=== PATIENT | female | born 1995 | race Caucasian/White ===

== ENCOUNTER 2019-01-08 15:11 | Emergency (ER) | payer OTHER ==
[2019-01-08 15:26] VITALS: BP 145/89
--- NOTE | 2019-01-08 15:46 | ER Document Report ---
ED General - General Chief Complaint: Vag Bleeding, +preg <12wks Stated Complaint: VAGINAL BLEEDING Time Seen by Provider: 01/08/19 15:38 Primary Care Provider: OLLIE ORO [Primary Care Provider] - Follow up as needed TRAVEL OUTSIDE OF THE [place] IN LAST 30 DAYS: No - HPI Notes: Patient is a 23-year-old female approximately 6 weeks who presents to the emergency department complaining of vaginal bleeding and right lower pelvic pain that is described as sharp that began over the last 12 hours. Patient states that she is still eating and drinking without difficulty. She is urinating normally and having normal bowel movements. She has not had any other vaginal odor or discharge. She has no concern of STD or STI. Denies drug allergies. No surgical history to her abdomen. Pain does not radiate. Denies any headache, fever, neck pain, URI, sore throat, chest pain, palpitations, syncope, cough, shortness of breath, wheeze, dyspnea, nausea/vomiting/diarrhea, urinary retention, dysuria, hematuria, back pain, or rash. - Related Data Allergies/Adverse Reactions: No Known Allergies Allergy (Unverified 01/08/19 15:12) Past Medical History - Social History Smoking Status: Never Smoker Frequency of alcohol use: None Drug Abuse: None Family History: Reviewed & Not Pertinent Patient has suicidal ideation: No Patient has homicidal ideation: No Renal/ Medical History: Denies: Hx Peritoneal Dialysis Review of Systems - Review of Systems -: Yes All other systems reviewed and negative Physical Exam - Vital signs Vitals: Temp Pulse Resp BP Pulse Ox 98.7 F 95 16 145/89 H 100 01/08/19 15:24 01/08/19 15:24 01/08/19 15:24 01/08/19 15:24 01/08/19 15:24 - Notes Notes: PHYSICAL EXAMINATION: GENERAL: Well-appearing, well-nourished and in no acute distress. LUNGS: Breath sounds clear to auscultation bilaterally and equal. No wheezes rales or rhonchi. HEART: Regular rate and rhythm without murmurs, rubs, gallops. ABDOMEN: Soft, nontender, nondistended abdomen. No guarding, no rebound. No masses appreciated. Normal bowel sounds present. No CVA tenderness bilaterally. No tenderness at [place]. Corona negative. : deferred Musculoskeletal: FROM to passive/active. Strength 5+/5. Extremities: No cyanosis, clubbing, or edema b/l. Peripheral pulses 2+. Capillary refill less than 3 seconds. NEUROLOGICAL: Normal speech, normal gait. PSYCH: Normal mood, normal affect. SKIN: Warm, Dry, normal turgor, no rashes or lesions noted. Course - Re-evaluation Re-evalutation: 01/08/19 Patient is an afebrile, well-hydrated, 23-year-old female who presents to the ED with bleeding in early w/o IUP or EUP noted. Vitals are acceptable without any significant tachycardia, tachypnea, or hypoxia. PE is otherwise unremarkable. HCG 979. TVUS unremarkable aside from 'lesion' on rt. UA unremarkable. Rhogam not indicated. Patient is nontoxic-appearing is tolerating p.o. without any difficulties. No other labs or imaging warranted at this time based on H&P. Low suspicion/risk for acute appendicitis, bowel obstruction, acute cholecystitis, acute cholangitis, perforated diverticulitis, incarcerated hernia, pancreatitis, perforated ulcer, peritonitis, sepsis, pelvic inflammatory disease, ectopic , tubo-ovarian abscess, ovarian torsion, or other systemic emergent condition at this time. Patient is aware that her condition can change from initial presentation and she needs to monitor symptoms closely and seek medical attention if any acute changes. Recheck HCG in 2-3 days, may need repeat US next week as well. ?Miscarriage vs early but ectopic cannot be ruled out. Conservative measures otherwise for symptoms. Recheck with your PCM/OBGYN in 3-5 days. Return to the ED with any worsening/concerning symptoms otherwise as reviewed in discharge. Patient is in agreement. - Vital Signs Vital signs: Temp Pulse Resp BP Pulse Ox 98.7 F 95 16 145/89 H 100 01/08/19 15:24 01/08/19 15:24 01/08/19 15:24 01/08/19 15:24 01/08/19 15:24 - Laboratory Laboratory results interpreted by me: 01/08/19 01/08/19 15:52 15:52 Beta HCG, Quant 979.81 H Urine Blood MODERATE H Discharge - Discharge Clinical Impression: Bleeding in early , Pelvic pain Condition: Stable Disposition: HOME, SELF-CARE Additional Instructions: Your beta hCG hormone test was at 979 and your ultrasound was unremarkable for any intrauterine or extrauterine at this time. It did note a complex lesion in the right ovary that is 1.5 cm. You will need a recheck of your hCG hormone test in 2-3 days and most likely an ultrasound in the next week. We will need to call DIRECTOR OF INTELLIGENCE to schedule an appointment for further evaluation and follow-up. Maintain fluid intake Proper hygienic technique Keep the skin clean Tylenol as needed F/u with your PCM/OBGYN in 3-5 days for a recheck Return to the ED with any development of MEREDITH/fever, trouble with vision, eye redness, worsening pain, urethral discharge, urinary retention, blood in the urine, flank pain, abdominal pain, n/v, Chest Pain, shortness of breath, joint pains, trouble breathing, or any other worsening/concerning symptoms as needed otherwise. Forms: Elevated Blood Pressure, Follow-Up Laboratory Testing Referrals: OLLIE ORO [Primary Care Provider] - Follow up as needed [facility] [Provider Group] - Follow up in 3-5 days
[2019-01-08 16:17] LABS: APPEARANCE,URINE CLEAR; BILIRUBIN,URINE NEGATIVE (NEGATIVE); COLOR,URINE STRAW; GLUCOSE, URINE NEGATIVE (NEGATIVE); KETONES,URINE NEGATIVE (NEGATIVE); LEUKOCYTE ESTERASE,URINE NEGATIVE (NEGATIVE); NITRITE,URINE NEGATIVE (NEGATIVE); PROTEIN,URINE NEGATIVE (NEGATIVE); URINE SPECIFIC GRAVITY 1.003; UROBILINOGEN,URINE NEGATIVE mg/dL (<2.0)
--- NOTE | 2019-01-08 16:53 | RADIOLOGY REPORT (SQ) ---
EXAM DESCRIPTION: U/S OB TRANSVAG W/DOPPLER COMPLETED DATE/TIME: 01/08/2019 4:39 pm REASON FOR STUDY: , rt pelvic pain, bleeding COMPARISON: None. TECHNIQUE: Transvaginal static and realtime grayscale images acquired of the pelvis. Additional michele cted spectral and color Doppler images recorded. All images stored on PACs. CLINICAL AGE: 6 week 1 day. BHCG: Pending. LIMITATIONS: None. FINDINGS: UTERUS: No visualized intrauterine . Thickened heterogenous endometrium measurin g 1.6 cm. RIGHT ADNEXA: Normal ovary with normal vascular flow. No adnexal free fluid. 1.5 cm complex lesion. LEFT ADNEXA: Normal ovary with normal vascular flow. No adnexal free fluid. No adnexal masses. FREE FLUID: None. OTHER: No other significant finding. IMPRESSION: NO VISUALIZED INTRA- OR EXTRAUTERINE . THERE IS 1.5 CM COMPLEX LESION IN THE R IGHT OVARY. bHCG LEVEL NOT AVAILABLE FOR CORRELATION WITH US FINDINGS. ECTOPIC CANNOT BE EXCLUDED. NEED CORRELATION WITH CURRENT HCG LEVEL. FOLLOW-UP ULTRASOUND AND SERIAL BHCG LEVELS STRONGLY RECOMM ENDED TO ACCURATELY ASSESS STATUS. TECHNICAL DOCUMENTATION: JOB ID: [id number] [employer]- All Rights Reserved Reading location - IP/workstation name: [email or web address]
== END 2019-01-08 17:17 | disposition home or self-care (01) ==
LOC: ER 15:11
DX: O46.91 Antepartum hemorrhage, unspecified, first trimester (principal); O26.891 Other specified pregnancy related conditions, first trimester; R10.2 Pelvic and perineal pain; Z3A.01 Less than 8 weeks gestation of pregnancy
CPT/HCPCS: 36415; 76817; 81001; 84702; 86900; 86901; 87086; 93976; 99284

== ENCOUNTER → 2019-01-10 | Outpatient (CLI) | payer OTHER | LOC: LAB 15:38 | PROVIDERS: ATTEND Physician Assistant Medical | DX: O46.90 Antepartum hemorrhage, unspecified, unspecified trimester (principal) | CPT/HCPCS: 36415; 84702 ==